=== PATIENT | female | born 1960 | race Caucasian/White ===

== ENCOUNTER → 2021-07-03 12:16 | Outpatient (CLI) | payer BC, SELFPAY ==
--- NOTE | ~2021-07-03 | MM_ITS ---
EXAMINATION: MM screening tanika BI w melinda HISTORY: Screening TECHNIQUE: Craniocaudal and mediolateral oblique 3-D tomosynthesis images were obtained and synthetic 2-D images were generated. CAD analysis was submitted and interpreted. COMPARISON: No prior mammogram is available for comparison at this institution. BREAST PARENCHYMAL COMPOSITION: There are scattered areas of fibroglandular density. FINDINGS: There is no evidence of suspicious mass, calcification, or architectural distortion to sugg est malignancy in either breast. There has been no suspicious interval change. IMPRESSION: 1. No mammographic evidence of malignancy. 2. Recommend routine screening mammography in one year. BI-RADS Category 1: Negative Reviewed, dictated and finalized at location A.
== END ==
PROVIDERS: PCP Hospitalist; Visit Provider Hospitalist
DX: Z12.31 Encounter for screening mammogram for malignant neoplasm of breast (principal)
CPT/HCPCS: 77063; 77067

== ENCOUNTER 2021-10-20 16:53 | Emergency (ER) | payer BC, SELFPAY ==
[2021-10-20 17:10] VITALS: BP 139/79; PULSE 77; RESP 16; TEMP 36.6; O2SAT 100
--- NOTE | 2021-10-20 17:41 | ED_ITS ---
HPI - Eye Problem General Chief complaint: Eye Problems Stated complaint: left eye irritation Time Seen by Provider: 10/20/21 17:32 History of Present Illness HPI Narrative: 61-year-old female presents to the emergency room for evaluation of left eye irritation. Patient states that she was in a bar cleaning something when something fell into her left eye. Currently, patient is complaining of blurriness. Denies any other visual changes. Related Data Allergies Allergy/AdvReac Type Severity Reaction Status Date / Time No Known Allergies Allergy Verified 10/20/21 17:33 Review of Systems Review of Systems: CONSTITUTIONAL: Denies fever, chills, or sweats. EYES: Reports visual changes ENT: Denies rhinorrhea, congestion, sore throat, or otalgia. CARDIOVASCULAR: Denies chest pain, palpitations, or edema. RESPIRATORY: Denies cough or dyspnea. GASTROINTESTINAL: Denies abdominal pain, nausea, vomiting, or diarrhea. GENITOURINARY: Denies dysuria or hematuria. SKIN: Denies rash or itching. MUSCULOSKELETAL: Denies back pain, joint pain, or myalgia. NEUROLOGIC: Denies headache, numbness, dizziness, or weakness. PSYCHIATRIC: Denies anxiety or depression. Exam Narrative: GENERAL: Well-appearing, well-nourished, no physical limitations, a nd in no acute distress. HEAD: Normocephalic, atraumatic. EYES:PERRLA and EOMI. left eye: Mild fluorescein reuptake to the 4 o'clock position. No foreign body noted. CHEST: Clear to auscultation. No respiratory distress. No wheezes rales or rhonchi. No tenderness. HEART: Regular rate and rhythm. No murmur heard. Normal peripheral pulses. EXTREMITIES: Normal range of motion. No edema. No clubbing or cyanosis SKIN: Warm, dry, no rash. No noted wounds NEURO: No focal deficits. Alert and oriented x3. MAEW. CN's II-XI intact bilaterally, normal gait PSYCH: Cooperative. Normal mood and affect. Course Vital Signs Vital signs: Vital Signs Temperature 36.6 C 10/20/21 17:10 Pulse Rate 77 10/20/21 17:10 Respiratory Rate 16 10/20/21 17:10 Blood Pressure 139/79 10/20/21 17:10 Pulse Oximetry 100 10/20/21 17:10 Oxygen Delivery Room Air 10/20/21 17:10 Temperature 36.6 C 10/20/21 17:10 Pulse Rate 77 10/20/21 17:10 Respiratory Rate 16 10/20/21 17:10 Blood Pressure 139/79 10/20/21 17:10 Pulse Oximetry 100 10/20/21 17:10 Oxygen Delivery Room Air 10/20/21 17:10 Discharge Plan Discharge Clinical Impression: Corneal abrasion Patient Disposition: Home, Self-Care Condition: Stable Instructions: Antibiotic Form, Corneal Abrasion (ED) Additional Instructions: Follow-up with [facility] in 3 to 4 days if your symptoms have not improved. [phone] Prescriptions: New ciprofloxacin HCl 0.3 % drops 2 drp LEFT EYE .Q2uvski Qty: 2.5 0RF Rx Instructions: 2 drps into left eye; Follow-up/Referrals: Lucas,MD Ramon [Primary Care Provider] - Time of Disposition: 17:45
== END 2021-10-20 18:25 | disposition home or self-care (01) ==
PROVIDERS: Emergency Provider Nurse Practitioner Family; PCP Hospitalist
DX: S05.02XA Injury of conjunctiva and corneal abrasion without foreign body, left eye, initial encounter (principal); W22.8XXA Striking against or struck by other objects, initial encounter
CPT/HCPCS: 99283; A9270

== ENCOUNTER 2022-07-11 09:07 | Emergency (ER) | payer BC, SELFPAY ==
--- NOTE | ~2022-07-11 | XR_ITS ---
EXAMINATION: XR wrist RT min 3V DATE: 07/11/2022 09:51 INDICATION: Right wrist pain and swelling. TECHNIQUE: 4 views of right wrist were obtained. COMPARISON: None. FINDINGS: Bone alignment is normal. No fracture. There is mild osteoarthritis of first carpometacarpa l joint and first interphalangeal joint. IMPRESSION: 1. Mild polyarticular osteoarthritis. Reviewed, dictated and finalized at location A.
--- NOTE | ~2022-07-11 | CT_ITS ---
EXAMINATION: CT cervical spine wo con DATE: 07/11/2022 10:59 INDICATION: Neck injury. TECHNIQUE: Computed tomography (CT) of the cervical spine was performed without intravenous contrast. Automated exposure control and iterative reconstruction technique were employed. The dose-length pro duct was 406.49 mGy-cm. COMPARISON: None FINDINGS: There is kyphosis of cervical spine. There is 10 degrees levoscoliosis of cervical spine. V ertebral body heights are normal. There is mildly decreased disc height at C4-C5, severely decreased height at C5-C6, and moderately decreased disc height at C6-C7. The following disc levels are specifi robb discussed: C2-C3: There is no uncovertebral joint osteoarthritis. There is severe right facet joint osteoarthrit is. There is no neural foraminal stenosis. There is no central canal stenosis. C3-C4: There is mild right and moderate left uncovertebral joint osteoarthritis. There is moderate ri ght and severe left facet joint osteoarthritis. There is mild right and moderate left neural foramina l stenosis. There is mild central canal stenosis. C4-C5: There is severe right and moderate left uncovertebral joint osteoarthritis. There is severe ri ght and moderate left facet joint osteoarthritis. There is mild right neural foraminal stenosis. Ther e is mild central canal stenosis. C5-C6: There is severe bilateral uncovertebral joint osteoarthritis. There is mild bilateral facet troy int osteoarthritis. There is mild right and moderate left neural foraminal stenosis. There is mild ce ntral canal stenosis. C6-C7: There is severe bilateral uncovertebral joint osteoarthritis. There is mild bilateral facet troy int osteoarthritis. There is mild bilateral neural foraminal stenosis. There is mild central canal st enosis. C7-T1: There is no uncovertebral joint osteoarthritis. There is severe right and mild left facet join t osteoarthritis. There is mild right neural foraminal stenosis. There is no central canal stenosis. IMPRESSION: 1. No fracture. 2. Severe cervical spondylosis. 3. Cervical kyphosis and levoscoliosis. Reviewed, dictated and finalized at location A.
--- NOTE | ~2022-07-11 | XR_ITS ---
EXAMINATION: XR chest 2V DATE: 07/11/2022 09:51 INDICATION: Right chest pain. Injury. TECHNIQUE: Frontal and lateral views of the chest were obtained. COMPARISON: None. FINDINGS: There is no pneumonia, pleural effusion, or pneumothorax. The heart size is normal. Surgica l clips in the right upper quadrant are likely from cholecystectomy. There is a suture anchor in left humeral head. IMPRESSION: 1. No acute cardiopulmonary disease. Reviewed, dictated and finalized at location A.
--- NOTE | ~2022-07-11 | CT_ITS ---
EXAMINATION: CT abdomen pelvis w con DATE: 07/11/2022 10:59 INDICATION: Right abdominal injury. TECHNIQUE: Computed tomography (CT) of the abdomen and pelvis was performed with 100 mL Omnipaque 350 intravenous contrast. Automated exposure control and iterative reconstruction technique were employe d. The dose-length product was 1317.76 mGy-cm. COMPARISON: None. FINDINGS: The visualized portions of the lung bases demonstrate mild atelectasis. There is mild scarr ing in paraspinal right lower lobe. No pleural effusion. The heart size is normal. No pericardial eff usion. The liver and spleen are normal. There are changes of cholecystectomy. The pancreas, adrenal g lands, and right kidney are normal. There is a 17 mm mass in left kidney measuring soft tissue attenu ation. There is diverticulosis of the colon without evidence of diverticulitis. There are no dilated loops of bowel. The appendix is normal. There are no pathologically enlarged lymph nodes. There is no free intraperitoneal fluid. There is mild subcutaneous fat stranding in right lateral body wall. The re are changes of anterior and posterior fusion procedures from L3 to L5. There is moderate lumbar sp ondylosis. IMPRESSION: 1. Mild subcutaneous fat stranding in right lateral body wall, consistent with contusion. 2. 17 mm left kidney mass, which may be a hemorrhagic cyst or less likely a neoplasm. Abdomen CT with out and with contrast is recommended. Reviewed, dictated and finalized at location A. IMPRESSION: 1. Mild subcutaneous fat stranding in right lateral body wall, consistent with contusion. 2. 17 mm left kidney mass, which may be a hemorrhagic cyst or less likely a satish plasm. Abdomen CT without and with contrast is recommended.
[2022-07-11 09:10] VITALS: BP 129/66; PULSE 78; RESP 16; TEMP 36.5; O2SAT 98
--- NOTE | 2022-07-11 09:24 | WC.ED.TRAUMA ---
HPI - Trauma General Chief Complaint: Extremity Injury, Upper Stated Complaint: fall of ladder yesterday Time Seen by Provider: 07/11/22 09:15 History of Present Illness HPI narrative: 61-year-old female here for evaluation after a fall from about 4 feet yesterday. Patient states that she was on a ladder cleaning her ceiling fan when she started to lean backwards, causing her to fall, striking her right side against the fireplace mantle and then landing on her right side. She did catch herself on her right outstretched hand. She did not hit her head or lose consciousness. Since the fall she has developed a very large bruise to the right side of her abdomen and hip. She has also had pain and swelling to her right wrist in addition to some neck pain. She had no difficulty breathing, headaches, neck pain. Related Data Allergies Allergy/AdvReac Type Severity Reaction Status Date / Time No Known Allergies Allergy Verified 07/11/22 09:07 Review of Systems Review of Systems: Gen: Denies fevers or chills Eyes: Denies eye pain or visual change ENT: Denies congestion Respiratory: Denies shortness of breath or cough CV: Denies chest pain or palpitations GI: Denies abdominal pain nausea, emesis or diarrhea : denies burning, urgency, frequency or hematuria Musculoskeletal: Reports wrist pain Neuro: Denies numbness, tingling, weakness or focal weakness Skin: Denies rash Except as documented, all other systems reviewed and negative Exam Narrative: APPEARANCE: Well appearing, no pain in distress, well-nourished. Head: Normocephalic and atraumatic. EYES: PERRLA/EOMI, conjunctivae clear NOSE: No nasal drainage EARS: External ear normal in appearance THROAT: Oropharynx is clear. Mucous membranes are moist. NECK: There is some tenderness to palpation along the lower cervical spine. Supple. No adenopathy, no masses. RESPIRATORY: Airway patent, respirations nonlabored. Clear to auscultation bilaterally, no rales, rhonchi, wheezing. CARDIOVASCULAR: Regular rate and rhythm without murmurs, rubs, or gallops. ABDOMINAL: There is a 4 x 5 cm area of ecchymosis to her right lower abdomen/flank that is slightly tender to palpation. There is a very large area of ecchymosis to her right lateral hip/buttock region but this is nontender to palpation. MUSCULOSKELETAL: There is no tenderness to palpation along the distal radius. There is some pain with active extension of the wrist. There is no snuffbox tenderness. No pain with range of motion of the fingers. NEURO: Normal speech. No focal neurologic deficits. SKIN: Skin is warm and dry. No rashes. PSYCHIATRIC: Normal affect/mood. Course Vital Signs Vital signs: Vital Signs Temperature 97.7 F 07/11/22 09:10 Pulse Rate 78 07/11/22 09:10 Respiratory Rate 16 07/11/22 09:10 Blood Pressure 129/66 07/11/22 09:10 Pulse Oximetry 98 07/11/22 09:10 Oxygen Delivery Room Air 07/11/22 09:10 Temperature 97.7 F 07/11/22 09:10 Pulse Rate 78 07/11/22 09:10 Respiratory Rate 16 07/11/22 09:10 Blood Pressure 129/66 07/11/22 09:10 Pulse Oximetry 98 07/11/22 09:10 Oxygen Delivery Room Air 07/11/22 09:10 MDM - Trauma MDM Narrative Medical decision making narrative: 61-year-old female here for evaluation of right abdominal pain and right wrist pain after she sustained a fall off of a ladder yesterday. She does have an area of bruising to her flank and abdomen and is tender to palpation along the distal radius on the right. Vital signs are normal. Pain comes of the wrist are negative. CT of the C-spine, abdomen pelvis and chest x-ray showed no traumatic findings. There is evidence of a large likely hemorrhagic cyst in her kidney that they are recommending follow-up imaging on. Patient was made aware of these incidental findings and understands importance of following up with her PCP. She declines any pain medicine in the ED. She will discharge home to follow
[2022-07-11 09:45] LABS: Basophils Percent Auto 0.5 % (0.2-1.2); Eosinophils Absolute Auto 0.1 K/mm3 (0-0.3); Eosinophils Percent Auto 2.4 % (0-4.4); Hematocrit 39.6 % (37.0-47.0); Hemoglobin 12.6 g/dL (12.0-15.0); Immature Granulocyte Absolute 0.02 K/mm3 (0.00-0.031); Immature Granulocyte Percent A 0.4 % (0-0.5); Lymphocytes Absolute Auto 1.66 K/mm3 (0.9-3.2); Lymphocytes Percent Auto 30.2 % (18.3-44.2); Mean Corpuscular HGB Conc 31.8 g/dl (32-36); Mean Corpuscular Volume 81.6 fl (80-100); Mean Platelet Volume 9.2 fl (7.4-10.4); Monocytes Absolute Auto 0.5 K/mm3 (0.1-0.6); Monocytes Percent Auto 8.6 % (2.6-8.5); Neutrophils Absolute Auto 3.2 K/mm3 (1.3-6.7); Neutrophils Percent Auto 57.9 % (45.5-73.1); Platelet Count Result 290 k/mm3 (150-375); Red Blood Count 4.85 M/mm3 (4.2-5.4); Red Cell Distribution Width 14.3 % (11.5-14.5); White Blood Count 5.5 K/mm3 (4.5-10.0)
[2022-07-11 09:58] LABS: INR 1.2
[2022-07-11 09:59] LABS: Partial Thromboplastin Time 30.4 SECONDS (22.3-36.8)
[2022-07-11 10:51] LABS: Estimated CRCL calculation 62 ml/min; Estimated Glomerular Filt Rate > 60
== END 2022-07-11 11:45 | disposition home or self-care (01) ==
PROVIDERS: Emergency Provider Physician Assistant; PCP Hospitalist
DX: S30.1XXA Contusion of abdominal wall, initial encounter (principal); S63.501A Unspecified sprain of right wrist, initial encounter; S66.911A Strain of unspecified muscle, fascia and tendon at wrist and hand level, right hand, initial encounter; M47.812 Spondylosis without myelopathy or radiculopathy, cervical region; N28.89 Other specified disorders of kidney and ureter; W11.XXXA Fall on and from ladder, initial encounter
CPT/HCPCS: 36415; 71046; 72125; 73110; 74177; 85025; 85610; 85730; 99284; Q9967

== ENCOUNTER → 2022-08-06 10:09 | Outpatient (CLI) | payer BC, SELFPAY ==
--- NOTE | ~2022-08-06 | MR_ITS ---
MRI of the cervical spine Clinical History: Radiculopathy Technique: Axial T2-weighted and gradient images, and sagittal T1-weighted, T2-weighted, and STIR ash ges were acquired. Findings: There is reversal normal cervical lordosis. No fracture or subluxation evident. No suspicio us bone marrow signal abnormality seen. At C2-C3, there is no disc bulge or herniation. No spinal canal stenosis, cord compression, or neural foraminal narrowing. At C3-C4, there is minimal disc osteophyte complex. Left facet arthropathy contributes to left neural foraminal narrowing. Right neural foramen preserved. No central canal stenosis or cord compression. At C4-C5, there is minimal disc osteophyte complex. There is bilateral neural foraminal narrowing, le ft worse than right. No deepthi cord compression or canal stenosis. At C5-C6, there is central disc protrusion. No deepthi canal stenosis or cord compression. There is mao ateral neural foraminal narrowing. At C6-C7, there is mild disc osteophyte complex. No deepthi canal stenosis or cord compression. There i s probable bilateral neural foraminal narrowing, right worse than left. No abnormal signal seen in the spinal cord. Paravertebral soft tissues are unremarkable. Impression: Mild to moderate degenerative spondylosis overall, as detailed above. Reviewed, dictated and finalized at [facility]. Impression: Mild to moderate degenerative spondylosis overall, as detailed above.
== END ==
PROVIDERS: PCP Hospitalist; Visit Provider Orthopaedic Surgery
DX: M47.22 Other spondylosis with radiculopathy, cervical region (principal)
CPT/HCPCS: 72141

== ENCOUNTER → 2022-09-16 15:54 | Outpatient (CLI) | payer BC, SELFPAY ==
--- NOTE | ~2022-09-16 | MM_ITS ---
EXAMINATION: MM screening tanika BI w melinda HISTORY: Screening mammogram TECHNIQUE: Craniocaudal and mediolateral oblique 3-D tomosynthesis images were obtained and synthetic 2-D images were generated. CAD analysis was submitted and interpreted. COMPARISON: 07/03/2021 BREAST PARENCHYMAL COMPOSITION:There are scattered areas of fibroglandular density. FINDINGS: No suspicious mass, calcification, or architectural distortion are identified in either yoselyn ast to suggest malignancy. There has been no suspicious interval change. IMPRESSION: No mammographic evidence of malignancy. Recommend routine screening mammography in one year. BI-RADS Category 1: Negative Reviewed, dictated and finalized at location .
== END ==
PROVIDERS: PCP Hospitalist; Visit Provider Hospitalist
DX: Z12.31 Encounter for screening mammogram for malignant neoplasm of breast (principal)
CPT/HCPCS: 77063; 77067

== ENCOUNTER 2023-09-27 14:57 | Outpatient (CLI) | payer BC, SELFPAY ==
--- NOTE | ~2023-09-27 | DEXA_ITS ---
Bone Density Report Name: MACARIO HAMPTON Age: 62 Sex: Female Ethnicity: White Date of : 1960 Indication: hyperparathyroidism; height loss; Referring Provider: EDENMINE Study: Bone densitometry was performed. Exam Date: September 27, 2023 Accession number: [id number] Bone Density: Region BMD T-score Z-score Classification Femoral Neck (Left) 0.786 -0.6 0.9 Normal Total Hip (Left) 0.950 0.1 1.3 Normal Femoral Neck (Right) 0.844 0.0 1.5 Normal Total Hip (Right) 0.998 0.5 1.7 Normal Femoral Neck Mean 0.815 -0.3 1.2 Normal Total Hip Mean 0.974 0.3 1.5 Normal World Health Organization criteria for BMD impression classify patients as: Normal (T-score at or above -1.0), Osteopenia (T-score between -1.0 and -2.5), or Osteoporosis (T-score at or below -2.5). 10-year Fracture Risk: FRAX not reported because: All T-scores for Spine Total, Hip Total, Femoral Neck at or above -1.0 Clinical Information Provided by Patient: Has used the following medications: Vitamin D Has the following medical conditions: Hyperparathyroidism Patient maximum height was 66 Menopause Age: 48 Drinks caffeinated beverages Onset of menses at age 11 Number of children 3 Impression: The patient has normal bone mass. Discussion: BONE DENSITY IS ABOVE THE MINIMUM DESIRABLE LEVEL AT ALL SKELETAL SITES TESTED. This patient?s bone mineral density is above the minimum desirable level (T-score -1.0 or better) at all sites measured. The patient should follow a healthful lifestyle (good nutrition with adequate calcium and vitamin D, and appropriate weight-bearing exercise). Follow-Up: Consider repeating this study in 5 years or sooner if there is some new clinical indication. Reported by: Dr. Иван Calhoun on 09/27/2023 3:14:00 PM. Reviewed, dictated and finalized at location A.
== END 2023-09-27 14:58 | disposition home or self-care (01) ==
LOC: CHSIMG 14:58
PROVIDERS: PCP Hospitalist; Visit Provider Obstetrics & Gynecology
DX: Z78.0 Asymptomatic menopausal state (principal)
CPT/HCPCS: 77080

== ENCOUNTER 2023-11-16 13:36 | Outpatient (CLI) | payer MEDICARE, SELFPAY ==
--- NOTE | ~2023-11-16 | MM_ITS ---
EXAMINATION: MM screening tanika BI w melinda HISTORY: Screening mammogram TECHNIQUE: Craniocaudal and mediolateral oblique 3-D tomosynthesis images were obtained and synthetic 2-D images were generated. CAD analysis was submitted and interpreted. COMPARISON: 09/16/2022, 07/03/2021 BREAST PARENCHYMAL COMPOSITION:Not Dense. There are scattered areas of fibroglandular density. FINDINGS: No suspicious mass, calcification, or architectural distortion are identified in either yoselyn ast to suggest malignancy. There has been no suspicious interval change. IMPRESSION: No mammographic evidence of malignancy. Recommend routine screening mammography in one year. BI-RADS Category 1: Negative Reviewed, dictated and finalized at location .
== END 2023-11-16 13:37 | disposition home or self-care (01) ==
LOC: MICIMG 13:40
PROVIDERS: PCP Hospitalist; Visit Provider Hospitalist
DX: Z12.31 Encounter for screening mammogram for malignant neoplasm of breast (principal)
CPT/HCPCS: 77063; 77067